=== PATIENT | male | born 1980 | race American Indian/Alaskan Native ===

== ENCOUNTER 2022-04-09 21:18 | Emergency (ER) | payer SELFPAY ==
[2022-04-09 21:45] VITALS: BP 140/90
== END 2022-04-10 05:28 | disposition left against medical advice (07) ==
LOC: ED 21:18
DX: K08.89 Other specified disorders of teeth and supporting structures (principal); Z53.21 Procedure and treatment not carried out due to patient leaving prior to being seen by health care provider